=== PATIENT | male | born 1965 | race Caucasian/White ===

== ENCOUNTER 2017-07-24 17:06 | Emergency (ER) | payer BC ==
[2017-07-24 17:28] VITALS: BP 168/93
--- NOTE | 2017-07-24 17:46 | UC ---
Jennie Fink Thomas, scribed for Tasha Manzanares MD on 07/24/17 at 1721 . Ear Complaint HPI - HPI Summary HPI Summary: The pt is a 51 y/o M presenting to E c/o bilateral ear wax that he wants to be irrigated. He reports that he typically requires his earwax to be irrigated three times a year. He says that he has used Q-tips in the past. He has attempted to irrigate his ears at home in the past. He has not taken earwax softeners. He does not normally experience dizziness when his ears are irrigated. Pt additionally c/o hearing loss secondary to the earwax. Pt denies any ear pain at this time. pt without any complaint He takes Metformin for his DM. PMHx: NIDDM. PSHx: inguinal hernia repair. SHx: former smoker, rare alcohol use, no illicit drug use. FHx: DM. The patients PCP is Dr. Hansen. Patients medication reviewed this visit. - History of Current Complaint Chief Complaint: UCEar Stated Complaint: EAR COMPLAINT Hx Obtained From: Patient Onset/Duration: Still Present Severity Initially: Mild Severity Currently: Mild Pain Intensity: 0 Pain Scale Used: 0-10 Numeric Aggravating Factors: Nothing Alleviating Factors: Nothing Associated Signs/Symptoms: Positive: Hearing Loss. Negative: Trauma to Ear Related History: Other (Noted In Comments) - Needs to have earwax irrigated three times a year - Allergies/Home Medications Allergies/Adverse Reactions: Allergies Allergy/AdvReac Type Severity Reaction Status Date / Time No Known Allergies Allergy Verified 07/24/17 17:12 PMH/Surg Hx/FS Hx/Imm Hx Previously Healthy: No Endocrine History: Diabetes Cardiovascular History: Other Other Cardiovascular History: NEG: DE - Surgical History Surgical History: Yes Surgery Procedure, Year, and Place: Right inguinal hernia surgery (November 2010 in [place]) - Family History Known Family History: Positive: Diabetes - Social History Occupation: Employed Full-time Lives: With Family Alcohol Use: Rare Substance Use Type: None Smoking Status (MU): Former Smoker Review of Systems Constitutional: Negative, Other - NEG: fever Skin: Negative Eyes: Negative ENT: Other - POS: bilateral earwax buildup, hearing loss secondary to the earwax ; NEG: ear pain Respiratory: Negative Cardiovascular: Negative Gastrointestinal: Negative Genitourinary: Negative Motor: Negative Neurovascular: Negative Musculoskeletal: Negative Neurological: Negative Psychological: Negative All Other Systems Reviewed And Are Negative: Yes Physical Exam Triage Information Reviewed: Yes Appearance: Well-Appearing, No Pain Distress, Well-Nourished Vital Signs: Initial Vital Signs Temp 98.1 F 07/24/17 17:09 Pulse 70 07/24/17 17:09 Resp 12 07/24/17 17:09 BP 168/93 07/24/17 17:09 Pulse Ox 98 07/24/17 17:09 Vital Signs Reviewed: Yes Eye Exam: Normal Eyes: Positive: Conjunctiva Clear ENT: Positive: Hearing grossly normal. Negative: TMs normal - left TM - cerumen impaction - non visible right TM - scant cerumen - easily removed with curette Neck exam: Normal Neck: Positive: Supple, Nontender, No Lymphadenopathy Respiratory Exam: Normal Respiratory: Positive: Chest non-tender, Lungs clear, Normal breath sounds, No respiratory distress, No accessory muscle use Cardiovascular Exam: Normal Cardiovascular: Positive: RRR, No Murmur, Pulses Normal Musculoskeletal Exam: Normal Neurological Exam: Normal Neurological: Positive: Alert Psychological Exam: Normal Skin Exam: Normal Re-Evaluation - Re-Evaluation First Eval Re-Evaluation Time: 17:53 Change: Improved - cerumen removed from left TM crisp, no erythema, intact Pt without complaints will d/c Ear Complaint Course/Dx - Course Course Of Treatment: The patient is a 51 y/o M complaining of bilateral earwax buildup and in need of irrigation. He reports similar prior episodes approximately three times a year. Right cerumen removed with lighted curette. left TM - RN to irrigate. Blood pressure noted and patient informed of follow up with PCP. - Differential Dx/Diagnosis Provider Diagnoses: cerumen impaction Discharge - Discharge Plan Condition: Stable Disposition: HOME Patient Education Materials: Cerumen Impaction (ED) Referrals: Wolf Granados MD [Primary Care Provider] - The documentation as recorded by the Jennie blanco Thomas accurately reflects the service I personally performed and the decisions made by Leighton baron Laura, MD.
== END 2017-07-24 18:00 | disposition home or self-care (01) ==
LOC: UCEAST 17:06
DX: H61.23 Impacted cerumen, bilateral (principal); Z87.891 Personal history of nicotine dependence
CPT/HCPCS: 69210; 99211; G0463

== ENCOUNTER 2017-08-26 13:11 | Emergency (ER) | payer BC ==
[2017-08-26 16:18] VITALS: BP 161/83
--- NOTE | 2017-08-26 19:33 | UC ---
Zoila Fink Abhishek, scribed for Nirmal Lucas MD on 08/26/17 at 1705 . Respiratory Complaint HPI - HPI Summary HPI Summary: This patient is a 51 year old M presenting to [facility] with a chief complaint of chest congestion for 3 days. The patient rates the pain 6/10 in severity. Symptoms aggravated by mucinex. Symptoms alleviated by nothing. Patient reports rhinorrhea, fever, sinus pressure, nonproductive cough. Denies wheezing and ear pain. Pt states crusty stuff was present when asked if post nasal drip was present. Pt states Sudafed did not alleviate symptoms. Patient denies PMHx asthma and received his flu shot 6 days ago. - History of Current Complaint Chief Complaint: UCRespiratory Stated Complaint: CHEST CONGESTION Time Seen by Provider: 08/26/17 16:40 Hx Obtained From: Patient Onset/Duration: Sudden Onset - Today Timing: Constant Severity Initially: Moderate Severity Currently: Moderate Pain Intensity: 6 Pain Scale Used: 0-10 Numeric Character: Cough: Nonproductive Aggravating Factors: Other - Mucinex Alleviating Factors: Nothing Associated Signs And Symptoms: Positive: Fever, Nasal Congestion, Sinus Discomfort. Negative: Wheezing - Allergies/Home Medications Allergies/Adverse Reactions: Allergies Allergy/AdvReac Type Severity Reaction Status Date / Time No Known Allergies Allergy Verified 08/26/17 14:01 PMH/Surg Hx/FS Hx/Imm Hx - Additional Past Medical History Additional PMH: NEGATIVE: ME Endocrine History: Diabetes - Surgical History Surgical History: Yes Surgery Procedure, Year, and Place: Right inguinal hernia surgery (November 2010 in [place]) - Family History Known Family History: Positive: Diabetes - Social History Occupation: Employed Full-time Alcohol Use: Occasionally Substance Use Type: None Smoking Status (MU): Former Smoker Review of Systems Constitutional: Fever Skin: Negative Eyes: Negative ENT: Nasal Discharge, Sinus Congestion, Other - chest congestion; negative ear ache Respiratory: Cough - nonproductive, Other - negative: wheezing Cardiovascular: Negative Gastrointestinal: Negative Genitourinary: Negative Motor: Negative Neurovascular: Negative Musculoskeletal: Negative Neurological: Negative Psychological: Negative All Other Systems Reviewed And Are Negative: Yes Physical Exam Triage Information Reviewed: Yes Vital Signs: Initial Vital Signs Temp 98.3 F 08/26/17 13:58 Pulse 80 08/26/17 13:58 Resp 18 08/26/17 13:58 BP 147/88 08/26/17 13:58 Pulse Ox 100 08/26/17 13:58 Vital Signs Reviewed: Yes - Additional Comments General: well-appearing, no pain distress Skin: warm, color reflects adequate perfusion, dry Head: normal Eyes: EOMI, AGUS ENT: cerumen in the ear canal, mild erythema in the pharynx, rhinorrhea Neck: supple, nontender Respiratory: CTA, breath sounds present Cardiovascular: RRR Abdomen: soft, nontender Bowel: present Musculoskeletal: normal, strength/ROM intact Neurological: normal, sensory/motor intact, A&O x3 Psychological: affect/mood appropriate Diagnostic Evaluation - Laboratory O2 Sat by Pulse Oximetry: 99 Respiratory Course/Dx - Course Course Of Treatment: MEDICATIONS REVIEWED - Differential Dx/Diagnosis Provider Diagnoses: SINUSITIS Discharge - Discharge Plan Condition: Stable Disposition: HOME Prescriptions: Amoxicillin/Clavulanate TAB* [Augmentin TAB 875*] 875 mg PO BID #20 tab Benzonatate CAP* [Tessalon 100 MG CAP*] 100 mg PO TID PRN #15 cap PRN Reason: Cough Patient Education Materials: Sinusitis (ED) Forms: *Work Release Referrals: Wolf Granados MD [Primary Care Provider] - Additional Instructions: FOLLOW UP WITH YOUR DOCTOR. GET RECHECKED FOR ANY WORSENING OF YOUR CONDITION OR QUESTIONS OR CONCERNS. The documentation as recorded by the Zoila blanco Abhishek accurately reflects the service I personally performed and the decisions made by me, Nirmal Lucas MD.
== END 2017-08-26 17:03 | disposition home or self-care (01) ==
LOC: UCEAST 13:11
DX: J32.9 Chronic sinusitis, unspecified (principal); E11.9 Type 2 diabetes mellitus without complications; Z87.891 Personal history of nicotine dependence
CPT/HCPCS: 99212; G0463

== ENCOUNTER 2017-10-16 14:34 | Emergency (ER) | payer BC ==
[2017-10-16 14:45] VITALS: BP 135/73
[2017-10-16] MEDS ORDERED: Al Hydrox/Mg Hydrox/Simet LIQ* 30 ML UDC PO ONE (15:05)
[2017-10-16] MEDS ORDERED: Famotidine TAB* 20 MG PO ONE (15:06)
[2017-10-16] MEDS ORDERED: Lidocaine 2% VISCOUS* 15 ML UDC PO ONE (15:08)
--- NOTE | 2017-10-16 15:38 | UC ---
General HPI - HPI Summary HPI Summary: 52 year old male with history of htn, hld, DM here with a complaint of "heart burn." Patient reports he usually does not get heart burn but few days ago he developed burning in his epigastrium/sternal area with nausea. He took OTC meds with partial relief. Symptoms are worsened when supine, partially alleviated with OTC meds. He denies exertional symptoms, MOORE, orthopnea, change in ET. No other complaints. - History of Current Complaint Chief Complaint: UCChestPain Stated Complaint: HEART BURN Time Seen by Provider: 10/16/17 14:51 Onset/Duration: Sudden Onset, Lasting Minutes Associated Signs & Symptoms: Positive: Nausea, Vomiting - Allergy/Home Medications Allergies/Adverse Reactions: Allergies Allergy/AdvReac Type Severity Reaction Status Date / Time No Known Allergies Allergy Verified 10/16/17 14:45 PMH/Surg Hx/FS Hx/Imm Hx Endocrine History: Diabetes, Dyslipidemia Cardiovascular History: Hypertension - Surgical History Surgical History: Yes Surgery Procedure, Year, and Place: Right inguinal hernia surgery (November 2010 in [place]) - Family History Known Family History: Positive: Diabetes - Social History Alcohol Use: Occasionally Substance Use Type: None Smoking Status (MU): Former Smoker Review of Systems Constitutional: Negative Skin: Negative Eyes: Negative ENT: Negative Respiratory: Negative Cardiovascular: Negative, Chest Pain Gastrointestinal: Negative, Vomiting Genitourinary: Negative Motor: Negative Neurovascular: Negative Musculoskeletal: Negative Neurological: Negative Psychological: Negative All Other Systems Reviewed And Are Negative: Yes Physical Exam Triage Information Reviewed: Yes Vital Signs: Initial Vital Signs Temp 37.1 C 10/16/17 14:38 Pulse 92 10/16/17 14:38 Resp 16 10/16/17 14:38 BP 135/73 10/16/17 14:38 Pulse Ox 100 10/16/17 14:38 Diagnostics - Radiology cxr Xray Interpretation: No Acute Changes Radiology Interpretation Completed By: Radiologist - EKG Cardiac Rate: NL Cardiac Rhythm: Sinus: Normal ST Segment: Non-Specific Re-Evaluation - Re-Evaluation First Eval Re-Evaluation Time: 16:11 Course/Dx - Course Course Of Treatment: Heart burn. Given his medical history and risk factors(DM , HTN, HLD and ex-smoker), concern for ACS. He prefers to go to the ED by car. - Differential Dx - Multi-Symptom Differential Diagnoses: Cardiac Ischemia, Other - Gastritis Provider Diagnoses: Chest pain NOS Discharge - Discharge Plan Condition: Good Disposition: TRANS HIGHER LVL OF CARE FAC Forms: *Work Release Referrals: Wolf Granados MD [Primary Care Provider] - Additional Instructions: You need to go to the ED for blood work to check your heart.
--- NOTE | 2017-10-16 15:56 | RAD ---
INDICATION: Epigastric area of burning. COMPARISON: Comparison is made with a prior chest x-ray study from August 31, 2015. TECHNIQUE: Dual-energy PA and lateral views of the chest were obtained. FINDINGS: The heart is within normal limits in size. Mediastinal and hilar contours appear within normal limits. The lungs are clear. No pleural effusion is present. No free intraperitoneal air is seen. IMPRESSION: NO EVIDENCE FOR ACTIVE CARDIOPULMONARY DISEASE.
== END 2017-10-16 16:15 | disposition short-term general hospital (02) ==
LOC: UCEAST 14:34
DX: R07.89 Other chest pain (principal); R10.13 Epigastric pain; R11.2 Nausea with vomiting, unspecified; E11.9 Type 2 diabetes mellitus without complications; E78.5 Hyperlipidemia, unspecified; I10 Essential (primary) hypertension; Z87.891 Personal history of nicotine dependence
CPT/HCPCS: 71020; 93005; 99212; A9270-GY; G0463

== ENCOUNTER 2017-10-16 17:27 | Emergency (ER) | payer BC ==
[2017-10-16 18:13] LABS: Hematocrit 37 % (42-52); Hemoglobin 12.6 g/dl (14.0-18.0); Mean Corpuscular HGB Conc 34 g/dl (31-36); Mean Corpuscular Hemoglobin 29 pg (27-31); Mean Corpuscular Volume 86 fL (80-94); Mean Platelet Volume 8 um3 (7.4-10.4); Red Cell Distribution Width 14 % (10.5-15)
[2017-10-16 18:26] LABS: Albumin 4.2 g/dL (3.2-5.2); BUN/Creatinine Ratio 16.3 (8-20); Calcium 9.1 mg/dL (8.6-10.3); EGFR African American 55.8 (>60); EGFR Non-African American 43.4 (>60); Globulin 2.9 g/dL (2-4); Potassium 3.5 mmol/L (3.5-5.0); Total Bilirubin 0.5 mg/dL (0.2-1.0); Total Protein 7.1 g/dL (6.4-8.9)
[2017-10-16 21:02] VITALS: BP 138/69
--- NOTE | 2017-10-17 20:12 | ED ---
Jeffy Fink Gabriel, scribed for Bishop Chowdhury MD on 10/16/17 at 2042 . GI/ HPI - HPI Summary HPI Summary: This patient is a 52 year old M presenting to [facility] accompanied by with a chief complaint of GERD since 5 days prior. The patient rates the pain 3/10 in severity. Patient reports vomiting. Patient denies CP, SOB, and melena. Pt states anytime he drinks or eats he gets dyspepsia, he has taken OTC antacids with no relief. He states it not exacerbated by lying. Pt was sent from urgent care, he was given a GI cocktail there which alleviated his symptoms. - History of Current Complaint Chief Complaint: EDGeneral Time Seen by Provider: 10/16/17 20:26 Stated Complaint: 5 DAYS OF HEARTBURN-SENT FROM Hx Obtained From: Patient Onset/Duration: Started Days Ago - 5, Still Present Timing: Constant Pain Intensity: 3 Pain Characteristics: Burning Associated Signs and Symptoms: Positive: Negative - CP, SOB, and melena, Other: - vomiting - Allergy/Home Medications Allergies/Adverse Reactions: Allergies Allergy/AdvReac Type Severity Reaction Status Date / Time No Known Allergies Allergy Verified 10/16/17 14:45 Home Medications: Home Medications Exenatide [Bydureon] 2 mg SC 10/16/17 [History] PMH/Surg Hx/FS Hx/Imm Hx Previously Healthy: No Endocrine/Hematology History: Reports: Hx Diabetes - Type II Cardiovascular History: Reports: Hx Hypertension - Surgical History Surgery Procedure, Year, and Place: Right inguinal hernia surgery (November 2010 in [place]) Infectious Disease History: No Infectious Disease History: Denies: History Other Infectious Disease, Traveled Outside the [place] in Last 30 Days - Family History Known Family History: Positive: Diabetes - Social History Alcohol Use: Occasionally Hx Substance Use: No Substance Use Type: Reports: None Hx Tobacco Use: No Smoking Status (MU): Former Smoker Review of Systems Negative: Chest Pain Negative: Shortness Of Breath Gastrointestinal: Negative - melena Positive: Vomiting, Other - dyspepsia All Other Systems Reviewed And Are Negative: Yes Physical Exam - Summary Physical Exam Summary: Appearance: Well appearing, no pain distress Skin: warm, dry, reflects adequate perfusion Head/face: normal Eyes: EOMI, AGUS ENT: normal Neck: supple, non-tender Respiratory: CTA, breath sounds present Cardiovascular: RRR, pulses symmetrical Abdomen: non-tender, soft Bowel: present Musculoskeletal: normal, strength/ROM intact Neuro: normal, sensory motor intact, A&Ox3 Triage Information Reviewed: Yes Vital Signs On Initial Exam: Initial Vitals Temp Pulse Resp BP Pulse Ox 97 F 79 18 126/69 100 10/16/17 17:31 10/16/17 17:31 10/16/17 17:31 10/16/17 17:31 10/16/17 17:31 Vital Signs Reviewed: Yes Diagnostics - Vital Signs Vital Signs Temp Pulse Resp BP Pulse Ox 10/16/17 17:31 97 F 79 18 126/69 100 - Laboratory Lab Results: Lab Results 10/16/17 10/16/17 10/16/17 Range/Units 17:58 17:58 17:58 WBC 8.0 (3.5-10.8) 10^3/ul RBC 4.30 (4.0-5.4) 10^6/ul Hgb 12.6 L (14.0-18.0) g/dl Hct 37 L (42-52) % MCV 86 (80-94) fL MCH 29 (27-31) pg MCHC 34 (31-36) g/dl RDW 14 (10.5-15) % Plt Count 232 (150-450) 10^3/ul MPV 8 (7.4-10.4) um3 Neut % (Auto) 52.9 (38-83) % Lymph % (Auto) 36.4 (25-47) % Laurens % (Auto) 5.9 (1-9) % Eos % (Auto) 4.0 (0-6) % Baso % (Auto) 0.8 (0-2) % Absolute Neuts (auto) 4.2 (1.5-7.7) 10^3/ul Absolute Lymphs (auto) 2.9 (1.0-4.8) 10^3/ul Absolute Monos (auto) 0.5 (0-0.8) 10^3/ul Absolute Eos (auto) 0.3 (0-0.6) 10^3/ul Absolute Basos (auto) 0.1 (0-0.2) 10^3/ul Absolute Nucleated RBC 0.01 10^3/ul Nucleated RBC % 0.1 Sodium 137 (133-145) mmol/L Potassium 3.5 (3.5-5.0) mmol/L Chloride 101 (101-111) mmol/L Carbon Dioxide 29 (22-32) mmol/L Anion Gap 7 (2-11) mmol/L BUN 27 H (6-24) mg/dL Creatinine 1.66 H (0.67-1.17) mg/dL Est GFR ( Amer) 55.8 (>60) Est GFR (Non-Af Amer) 43.4 (>60) BUN/Creatinine Ratio 16.3 (8-20) Glucose 64 L (70-100) mg/dL Lactic Acid 1.2 (0.5-2.0) mmol/L Calcium 9.1 (8.6-10.3) mg/dL Total Bilirubin 0.50 (0.2-1.0) mg/dL AST 15 (13-39) U/L ALT 18 (7-52) U/L Alkaline Phosphatase 61 (34-104) U/L Troponin I 0.00 (<0.04) ng/mL Total Protein 7.1 (6.4-8.9) g/dL Albumin 4.2 (3.2-5.2) g/dL Globulin 2.9 (2-4) g/dL Albumin/Globulin Ratio 1.4 (1-3) Result Diagrams: 10/16/17 17:58 10/16/17 17:58 Lab Statement: Any lab studies that have been ordered have been reviewed, and results considered in the medical decision making process. GIGU Course/Dx - Course Course Of Treatment: pt with GI sx, not on meds. Tx with relief. Rx for PPI/H2 louisa. F/U PMD. - Diagnoses Differential Diagnoses - Male: Enterocolitis, Esophagitis/Gastritis, Esophageal Varices Provider Diagnoses: GERD (gastroesophageal reflux disease), Controlled diabetes mellitus, Chronic renal insufficiency Discharge - Discharge Plan Condition: Good Disposition: HOME Prescriptions: Famotidine TAB 40 MG(NF) [Pepcid TAB 40 MG(NF)] 40 mg PO DAILY PRN #10 tab PRN Reason: Heartburn Pantoprazole TAB (NF) [Protonix TAB (NF)] 40 mg PO DAILY #30 tab Patient Education Materials: Gastroesophageal Reflux Disease (ED) Referrals: Wolf Granados MD [Primary Care Provider] - Additional Instructions: Avoid alcohol, coffee, spicy foods and antiinflammatory drugs such as ibuprofen/ aleve. Return if worse, dark/tarry stools, new symptoms or other concerns. Review your kidney function with your doctor. The documentation as recorded by the Jeffy blanco Gabriel accurately reflects the service I personally performed and the decisions made by me, Bishop Chowdhury MD.
== END 2017-10-16 21:02 | disposition home or self-care (01) ==
LOC: ED 17:27
DX: K21.9 Gastro-esophageal reflux disease without esophagitis (principal); E11.9 Type 2 diabetes mellitus without complications; N18.9 Chronic kidney disease, unspecified
CPT/HCPCS: 36415; 80053; 83605; 84484; 85025; 93005; 99283

== ENCOUNTER 2017-12-31 07:55 | Emergency (ER) | payer BC ==
[2017-12-31 08:36] VITALS: BP 139/86
--- NOTE | 2017-12-31 10:09 | UC ---
FLU HPI - HPI Summary HPI Summary: Pt presents with flu like symptoms. He tells me that about 4 days ago he developed fever, fatigue, and body aches. The next day he developed nausea, vomiting, and diarrhea with mild generalized abdominal pain. His was sick with similar symptoms. He stayed home from work yesterday and today due to this. Last night he felt better and today even better - able to eat. No more diarrhea or vomiting since yesterday morning. Denies fever, chills, SOB, chest pain, abdominal pain. - History of Current Complaint Chief Complaint: UCGeneralIllness Stated Complaint: FLU SYMPTOMS Time Seen by Provider: 12/31/17 08:34 Hx Obtained From: Patient Onset/Duration: Gradual Onset Severity Currently: Moderate Severity Initially: Moderate Pain Intensity: 5 Pain Scale Used: 0-10 Numeric - Allergy/Home Medications Allergies/Adverse Reactions: Allergies Allergy/AdvReac Type Severity Reaction Status Date / Time No Known Allergies Allergy Verified 12/31/17 08:30 PMH/Surg Hx/FS Hx/Imm Hx Endocrine History: Diabetes, Dyslipidemia Cardiovascular History: Hypertension - Surgical History Surgical History: Yes Surgery Procedure, Year, and Place: Right inguinal hernia surgery (November 2010 in [place]) - Family History Known Family History: Positive: Diabetes - Social History Occupation: Employed Full-time Lives: With Family Alcohol Use: Occasionally Substance Use Type: None Smoking Status (MU): Former Smoker Review of Systems Constitutional: Fever, Fatigue, Other - Body aches Skin: Negative Eyes: Negative ENT: Negative Respiratory: Negative Cardiovascular: Negative Gastrointestinal: Vomiting, Diarrhea, Nausea Musculoskeletal: Negative Neurological: Negative Psychological: Negative All Other Systems Reviewed And Are Negative: Yes Physical Exam Triage Information Reviewed: Yes Appearance: Well-Appearing, No Pain Distress, Well-Nourished Vital Signs: Initial Vital Signs Temp 98.4 F 12/31/17 08:34 Pulse 82 12/31/17 08:34 Resp 16 12/31/17 08:34 BP 139/86 12/31/17 08:34 Pulse Ox 99 12/31/17 08:34 Vital Signs Reviewed: Yes Eyes: Positive: Conjunctiva Clear. Negative: Conjunctiva Inflamed, Discharge ENT: Positive: Hearing grossly normal, Pharynx normal, TMs normal, Uvula midline. Negative: Pharyngeal erythema, Nasal congestion, Nasal drainage, TM bulging, TM dull, TM red, Tonsillar swelling, Tonsillar exudate, Hoarse voice, Sinus tenderness Neck: Positive: Supple, Nontender, No Lymphadenopathy Respiratory: Positive: Chest non-tender, Lungs clear, Normal breath sounds, No respiratory distress, No accessory muscle use Cardiovascular: Positive: RRR, No Murmur, Pulses Normal Abdomen Description: Positive: Nontender, No Organomegaly, Soft. Negative: CVA Tenderness (R), CVA Tenderness (L), Distended, Guarding Bowel Sounds: Positive: Present Neurological: Positive: Alert Psychological: Positive: Age Appropriate Behavior Skin: Negative: rashes Flu Course/Dx - Course Course Of Treatment: POC flu negative. Suspect viral gastroenteritis. He is asking for a work note - Differential Dx/Diagnosis Provider Diagnoses: Viral gastroenteritis Discharge - Discharge Plan Condition: Stable Disposition: HOME Patient Education Materials: Gastroenteritis (DC) Forms: *Work Release Referrals: Wolf Granados MD [Primary Care Provider] - Additional Instructions: If you develop a fever, shortness of breath, chest pain, new or worsening symptoms - please call your PCP or go to the ED. Your blood pressure was high at todays visit. Please see your primary provider within 4 weeks for recheck and re-evaluation.
== END 2017-12-31 10:25 | disposition home or self-care (01) ==
LOC: UCEAST 07:55
DX: A08.4 Viral intestinal infection, unspecified (principal); E11.9 Type 2 diabetes mellitus without complications; E78.5 Hyperlipidemia, unspecified; I10 Essential (primary) hypertension; Z87.891 Personal history of nicotine dependence
CPT/HCPCS: 87502; 99212; G0463

== ENCOUNTER 2018-02-19 07:16 | Emergency (ER) | payer BC ==
[2018-02-19 07:38] VITALS: BP 152/82
[2018-02-19] MEDS ORDERED: predniSONE TAB* 20 MG PO ONE (08:03)
--- NOTE | 2018-02-19 08:11 | UC ---
Lower Extremity/Ankle HPI - HPI Summary HPI Summary: 52 yo male iwth left great toe redness and pain x 3 days hx of gout no trauma - History of Current Complaint Chief Complaint: UCLowerExtremity Stated Complaint: FOOT PAIN Time Seen by Provider: 02/19/18 07:53 Hx Obtained From: Patient Onset/Duration: Gradual Onset Severity Initially: Moderate Severity Currently: Moderate Pain Intensity: 7 Pain Scale Used: 0-10 Numeric Aggravating Factor(s): Standing, Ambulation Alleviating Factor(s): Rest Able to Bear Weight: Yes - Risk Factors Gout Risk Factors: Age Over 40, Male, Diabetes, Hypertension - Allergies/Home Medications Allergies/Adverse Reactions: Allergies Allergy/AdvReac Type Severity Reaction Status Date / Time No Known Allergies Allergy Verified 02/19/18 07:32 PMH/Surg Hx/FS Hx/Imm Hx Previously Healthy: Yes Endocrine History: Diabetes Cardiovascular History: Hypertension - Surgical History Surgical History: Yes Surgery Procedure, Year, and Place: Right inguinal hernia surgery (November 2010 in [place]) - Family History Known Family History: Positive: Diabetes - Social History Alcohol Use: Occasionally Substance Use Type: None Smoking Status (MU): Former Smoker Review of Systems Constitutional: Negative Skin: Negative Eyes: Negative ENT: Negative Respiratory: Negative Cardiovascular: Negative Gastrointestinal: Negative Genitourinary: Negative Motor: Negative Neurovascular: Negative Musculoskeletal: Arthralgia Neurological: Negative Psychological: Negative Is Patient Immunocompromised?: No All Other Systems Reviewed And Are Negative: Yes Physical Exam Triage Information Reviewed: Yes Appearance: Well-Appearing, No Pain Distress, Well-Nourished Vital Signs: Initial Vital Signs Temp 98.3 F 02/19/18 07:34 Pulse 71 02/19/18 07:34 Resp 16 02/19/18 07:34 BP 152/82 02/19/18 07:34 Pulse Ox 98 02/19/18 07:34 Vital Signs Reviewed: Yes Eyes: Positive: Conjunctiva Clear ENT: Positive: Hearing grossly normal. Negative: Nasal congestion, Nasal drainage, Trismus, Muffled voice, Hoarse voice Neck: Positive: Supple Respiratory: Positive: Lungs clear, Normal breath sounds, No respiratory distress, No accessory muscle use Cardiovascular: Positive: RRR, No Murmur Musculoskeletal: Positive: Edema @ - red/swollen left great toe MTP, Other: - antalgic gait Neurological: Positive: Alert Psychological Exam: Normal Skin Exam: Normal Lower Extremity Course/Dx - Course Course Of Treatment: labs for 10/04 reviewed. elevated BUN and Creat. will avoid NSAIDs - Differential Dx/Diagnosis Provider Diagnoses: acute gouty arthritis left great toe Discharge - Sign-Out/Discharge Documenting (check all that apply): Discharge - Discharge Plan Condition: Stable Disposition: HOME Prescriptions: predniSONE [Prednisone] 60 mg PO DAILY #6 tab Patient Education Materials: Low Purine Diet (ED), Gout (ED) Referrals: Wolf Granados MD [Primary Care Provider] - 2 Weeks Additional Instructions: post op shoe tylenol recheck in 4 days if not better - Billing Disposition and Condition Condition: STABLE Disposition: HOME Images Feet (Multiple View): 1 - red/swollen
== END 2018-02-19 08:10 | disposition home or self-care (01) ==
LOC: UCEAST 07:16
DX: M10.072 Idiopathic gout, left ankle and foot (principal); E11.9 Type 2 diabetes mellitus without complications; Z79.84 Long term (current) use of oral hypoglycemic drugs; I10 Essential (primary) hypertension; Z87.891 Personal history of nicotine dependence
CPT/HCPCS: 99213; G0463; J7512

== ENCOUNTER 2018-06-13 07:15 | Emergency (ER) | payer BC ==
[2018-06-13 07:29] VITALS: BP 153/82
--- NOTE | 2018-06-13 07:42 | UC ---
Ear Complaint HPI - HPI Summary HPI Summary: 2 DAYS OF DECREASED HEARING AND SENSATION THAT HIS EARS ARE PLUGGED. STATES HE BUILDS WAX AND HAS TO GET HIS EARS CLEANED OUT EVERY 3 OR 4 MONTHS. NO FEVER OR URI SYMPTOMS. DOES NOT USE Q-TIPS. - History of Current Complaint Chief Complaint: UCEar Stated Complaint: PLUGGED EARS Time Seen by Provider: 06/13/18 07:17 Hx Obtained From: Patient Onset/Duration: Gradual Onset, Lasting Days, Still Present Severity Initially: Mild Severity Currently: Mild Pain Intensity: 0 Pain Scale Used: 0-10 Numeric Aggravating Factors: Nothing Alleviating Factors: Nothing Associated Signs/Symptoms: Positive: Hearing Loss. Negative: Discharge, URI Symptoms - Allergies/Home Medications Allergies/Adverse Reactions: Allergies Allergy/AdvReac Type Severity Reaction Status Date / Time No Known Allergies Allergy Verified 06/13/18 07:26 PMH/Surg Hx/FS Hx/Imm Hx Endocrine History: Diabetes Cardiovascular History: Hypertension - Surgical History Surgical History: Yes Surgery Procedure, Year, and Place: Right inguinal hernia surgery (November 2010 in [place]) - Family History Known Family History: Positive: Hypertension, Diabetes - Social History Alcohol Use: Occasionally Substance Use Type: None Smoking Status (MU): Former Smoker Have You Smoked in the Last Year: Yes - once in a while cigar Household Exposure Type: Cigars Review of Systems Constitutional: Negative ENT: Other - decreased hearing Respiratory: Negative Cardiovascular: Negative Gastrointestinal: Negative All Other Systems Reviewed And Are Negative: Yes Physical Exam Triage Information Reviewed: Yes Appearance: Well-Appearing, No Pain Distress, Well-Nourished Vital Signs: Initial Vital Signs Temp 98.4 F 06/13/18 07:22 Pulse 69 06/13/18 07:22 Resp 18 06/13/18 07:22 BP 153/82 06/13/18 07:22 Pulse Ox 96 06/13/18 07:22 Vital Signs Reviewed: Yes Eyes: Positive: Conjunctiva Clear ENT: Positive: Hearing grossly normal, Pharynx normal, Other - EAC BILATERALLY WITH CERUMEN OBSTRUCTING VIEW OF TMs Neck: Positive: Supple Respiratory: Positive: No respiratory distress, No accessory muscle use Cardiovascular: Positive: Pulses Normal Musculoskeletal: Positive: No Edema Neurological: Positive: Alert Psychological: Positive: Age Appropriate Behavior Skin: Negative: rashes Ear Complaint Course/Dx - Course Course Of Treatment: BILATERAL EAR CANALS SUCCESSFULLY IRRIGATED BY RN. TMS VISUALIZED AND ARE CLEAR. - Differential Dx/Diagnosis Provider Diagnoses: BILATERAL CERUMEN IMPACTION Discharge - Sign-Out/Discharge Documenting (check all that apply): Patient Departure - Discharge Plan Condition: Stable Disposition: HOME Patient Education Materials: Cerumen Impaction (ED) Referrals: Wolf Granados MD [Primary Care Provider] - If Needed Additional Instructions: YOUR EARS WERE SUCCESSFULLY IRRIGATED TODAY. NOW THAT YOUR EAR CANALS ARE CLEAR OF WAX YOU MAY USE A QTIP TO GENTLY AND CAREFULLY CLEAN YOUR EARS ONCE OR TWICE A WEEK TO KEEP WAX FROM BUILDING UP. DO NOT INSERT THE QTIP ANY FURTHER THAN THE DEPTH OF THE [employer] [facility]. - Billing Disposition and Condition Condition: STABLE Disposition: Home
== END 2018-06-13 08:05 | disposition home or self-care (01) ==
LOC: UCEAST 07:15
DX: H61.23 Impacted cerumen, bilateral (principal); I10 Essential (primary) hypertension; E11.9 Type 2 diabetes mellitus without complications
CPT/HCPCS: 99213; G0463

== ENCOUNTER 2018-07-23 08:32 | Emergency (ER) | payer BC ==
[2018-07-23 08:39] VITALS: BP 155/99
--- NOTE | 2018-07-23 09:33 | UC ---
Abdominal Pain Male HPI - HPI Summary HPI Summary: This patient 52 is year old male presenting to [facility] with a CC of N/V/D since this AM. He states he got to work this AM, started feeling diaphoretic, clammy , and nauseous; he experienced 3x emesis this AM (he describes it as food from last night), and 1x diarrhea this AM. no blood or black stools. Pt left work. He endorses that his sx are better currently than at onset. Pt states current little nausea,but not bad. No chest pain or shortness of breath no abdominal pain No sick contact. no others shared food last night (left over bbq and mac salad from weekend) No abdominal pain. Pt denies fever, chills, SOB, and recent travel outside of the [place] or exposure to other ill people. PMHx DM II; he denies having checked his sugar today, and notes he rarely checks it, but when he does it is usually around 123. Pt's medications reviewed this visit - History of Current Complaint Chief Complaint: UCGeneralIllness Stated Complaint: VOMITING Time Seen by Provider: 07/23/18 09:06 Hx Obtained From: Patient Onset/Duration: Sudden Onset, Lasting Hours, Still Present Timing: Constant Severity Initially: Moderate Severity Currently: Mild Location: Other - no abdominal pain Radiates: No Character: Not Applicable Aggravating Factor(s): Nothing Alleviating Factor(s): Nothing Associated Signs And Symptoms: Positive: Diaphoresis, Chest Pain - secondary to emesis, right lateral, Nausea, Vomiting, Diarrhea. Negative: Fever - Allergies/Home Medications Allergies/Adverse Reactions: Allergies Allergy/AdvReac Type Severity Reaction Status Date / Time No Known Allergies Allergy Verified 07/23/18 08:39 PMH/Surg Hx/FS Hx/Imm Hx Endocrine History: Diabetes, Dyslipidemia Cardiovascular History: Hypertension - Surgical History Surgical History: Yes Surgery Procedure, Year, and Place: Right inguinal hernia surgery (November 2010 in [place]) - Family History Known Family History: Positive: Hypertension, Diabetes - Social History Occupation: Employed Full-time Lives: Alone Alcohol Use: Occasionally Substance Use Type: None Smoking Status (MU): Former Smoker Have You Smoked in the Last Year: Yes - once in a while cigar Household Exposure Type: Cigars Review of Systems Constitutional: Other - diaphoretic, clammy Cardiovascular: Chest Pain - secondary to emesis, right lateral ribs Gastrointestinal: Vomiting, Diarrhea, Nausea Is Patient Immunocompromised?: Yes - DM II, no insulin All Other Systems Reviewed And Are Negative: Yes Physical Exam - Summary Physical Exam Summary: Vital Signs Reviewed: Yes A+Ox3, no distress Eyes: Conjunctiva Clear, AGUS. EOM intact and full ENT: Hearing grossly normal TM x 2 clear, mmoist, uvula midline, no exudate, no erythema Neck: Positive: Supple Respiratory: Positive: No respiratory distress, No accessory muscle use + CTA throughout no w/r mild discomfort with direct palp right lateral distal rib no crepitus Cardiovascular: RRR nl s1, s2 no m/r CBT <2 sec abd soft + BS nt/nd no guarding, no distension Musculoskeletal Exam: GRAYSON x 4 without difficulty Strength Intact, ROM Intact Neurological: Positive: Alert, + sensation throughout Psychological: Positive: Normal Response To Family Skin: Positive: no rash, no ecchymosis Triage Information Reviewed: Yes Vital Signs: Initial Vital Signs Temp 98.1 F 07/23/18 08:36 Pulse 75 07/23/18 08:36 Resp 16 07/23/18 08:36 BP 155/99 07/23/18 08:36 Pulse Ox 99 07/23/18 08:36 Diagnostics - EKG EKG Comments: 0919 Cardiac Rate: NL - 63 Cardiac Rhythm: Sinus: Normal Ectopy: None ST Segment: Normal EKG Comparison: No Significant Change - from 10/04 Re-Evaluation - Re-Evaluation First Eval Comment: EKG unchanged from past October 2017. Blood sugar 247. Urine has 3+ glucose but has no ketones. Patient continues to feel well. We'll discharge patient home with a prescription for Zofran. Strict return precautions. Patient advised to call 911 or go to a hospital if anything changes. Patient understanding and agreement. Patient given a work note. Abd Pain Male Course/Dx - Course Course Of Treatment: Patient presents following 3 episodes of emesis that happened this morning. Patient states he had diarrhea before going to work. Patient states at work he felt suddenly clammy nauseous and vomited 3 times. Patient states the vomitus was last night undigested food. Patient states at the present he feels okay. Patient while mild discomfort right lower rib today thinks from vomiting. Patient denies any abdominal pain. Patient without any sick contacts. No others with the same food. Patient denies shortness of breath or chest pain. Patient does have some cardiac risk factors that he is a diabetic as well as has hypertension and high cholesterol. We'll check an EKG, fingerstick blood sugars. In urine. Follow unremarkable likely discharged with a prescription for Zofran. Patient given strict return precautions. Patient states understanding and agreement with plan. - Differential Dx/Clinical Impression Provider Diagnoses: acute episode of nausea and vomiting Discharge - Sign-Out/Discharge Documenting (check all that apply): Post-Discharge Follow Up All imaging exams completed and their final reports reviewed: No Studies - Discharge Plan Condition: Stable Disposition: HOME Prescriptions: Ondansetron ODT TAB* [Zofran 4 MG Odt TAB*] 4 mg PO Q6H PRN #10 tab.odt PRN Reason: Vomiting Patient Education Materials: Acute Nausea and Vomiting (ED) Forms: *Work Release Referrals: Wolf Granados MD [Primary Care Provider] - Additional Instructions: - Stay well hydrate. Drink plenty of non alcoholic, non caffeinated beverages. Frequent, small sips - For the first 6 hours, eat and drink clears (water, donnie ha, soup broth, jello, popsicles, Gatorade). If you tolerate this okay, add bland foods such as dry toast, scrambled eggs, crackers. Wait until you are feeling better for 24 hours before eating spicy food, acidic food, tomato based food, fried food. - Okay to take medication a prescribed for nausea - get restful sleep - If you develop pain, uncontrolled vomiting, fevers, chest pain or any other concerns it is recommended you contact your doctor or seek medical care - Billing Disposition and Condition Condition: STABLE Disposition: Home - Attestation Statements Document Initiated by Rozina: Yes Documenting Scribe: Bran Diana Provider For Whom Rozina is Documenting (Include Credential): Dr. Tasha Manzanares MD Scribe Attestation: Bran Fink scribed for Dr. Tasha Manzanares MD on 07/23/18 at 1058. Scribe Documentation Reviewed: Yes Provider Attestation: The documentation as recorded by the Bran blanco accurately reflects the service I personally performed and the decisions made by me, Dr. Tasha Manzanares MD
== END 2018-07-23 09:55 | disposition home or self-care (01) ==
LOC: UCEAST 08:32
DX: R11.2 Nausea with vomiting, unspecified (principal); R61 Generalized hyperhidrosis; R07.89 Other chest pain; Z87.891 Personal history of nicotine dependence
CPT/HCPCS: 81003; 93005; 99212; G0463

== ENCOUNTER 2018-08-29 12:05 | Emergency (ER) | payer BC ==
[2018-08-29 12:13] VITALS: BP 146/79
--- NOTE | 2018-08-29 13:12 | UC ---
Abdominal Pain Male HPI - HPI Summary HPI Summary: 52 yo male presents with nausea, vomiting, and fatigue that began this morning. He tells me that he did not take his zantac this morning and had breakfast pizza and coffee. Soon after this developed nausea, "heartburn", belching, and vomited once while at work. His boss sent him home. He is also diabetic, but does not check his sugars regularly or monitor his diet. He denies fever, chills , SOB, chest pain, abdominal pain, dysuria, diarrhea. - History of Current Complaint Chief Complaint: UCGI Stated Complaint: VOMITTING,FATIGUE,EYE COMPLAINT Time Seen by Provider: 08/29/18 13:12 Hx Obtained From: Patient Onset/Duration: Sudden Onset Severity Initially: Moderate Severity Currently: Moderate Pain Intensity: 5 Pain Scale Used: 0-10 Numeric - Allergies/Home Medications Allergies/Adverse Reactions: Allergies Allergy/AdvReac Type Severity Reaction Status Date / Time No Known Allergies Allergy Verified 08/29/18 12:13 PMH/Surg Hx/FS Hx/Imm Hx Endocrine History: Diabetes, Dyslipidemia Cardiovascular History: Hypertension GI/ History: Gastroesophageal Reflux - Surgical History Surgical History: Yes Surgery Procedure, Year, and Place: Right inguinal hernia surgery (November 2010 in [place]) - Family History Known Family History: Positive: Hypertension, Diabetes - Social History Occupation: Employed Full-time Lives: With Family Alcohol Use: Occasionally Substance Use Type: None Smoking Status (MU): Former Smoker Have You Smoked in the Last Year: Yes - once in a while cigar Household Exposure Type: Cigars Review of Systems Constitutional: Negative Skin: Negative Eyes: Negative ENT: Negative Respiratory: Negative Cardiovascular: Negative Gastrointestinal: Vomiting, Nausea Genitourinary: Negative Neurovascular: Negative Neurological: Negative Psychological: Negative All Other Systems Reviewed And Are Negative: Yes Physical Exam - Summary Physical Exam Summary: GENERAL: NAD. WDWN. No pain distress. SKIN: No rashes, sores, lesions, or open wounds. NECK: Supple. Nontender. No lymphadenopathy. CHEST: CTAB. No r/r/w. No accessory muscle use. Breathing comfortably and in no distress. CV: RRR. Without m/r/g. Pulses intact. Cap refill <2seconds ABDOMEN: Soft. NTTP. No distention or guarding. No CVA tenderness. Bowel sounds present NEURO: Alert. PSYCH: Age appropriate behavior. Triage Information Reviewed: Yes Vital Signs: Initial Vital Signs Temp 97.5 F 08/29/18 12:09 Pulse 86 08/29/18 12:09 Resp 18 08/29/18 12:09 BP 146/79 08/29/18 12:09 Pulse Ox 97 08/29/18 12:09 Laboratory Tests 08/29/18 13:42 POC Glucose (mg/dL) 347 H Vital Signs Reviewed: Yes Re-Evaluation - Re-Evaluation First Eval Re-Evaluation Time: 14:07 Change: Improved Abd Pain Male Course/Dx - Course Course Of Treatment: EKG NSR 79bpm. LVH. No ST changes as read by Dr. Hollingsworth. POC glucose 347. Pt was given Maalox Plus with viscous lidocaine and observed for ~30minutes. On re-eval he reported complete resolution of his symptoms and felt much better. I discussed with him that his glucose is very high and stressed the importance of proper diet and glucose control. Advised to make an appt as soon as possible with his PCP for this. Pt voiced understanding. - Differential Dx/Clinical Impression Provider Diagnoses: GERD. Nausea. vomiting. DM2 Discharge - Sign-Out/Discharge Documenting (check all that apply): Patient Departure All imaging exams completed and their final reports reviewed: No Studies - Discharge Plan Condition: Stable Disposition: HOME Prescriptions: Ondansetron HCl [Zofran 4 MG TAB] 4 mg PO Q8H PRN #15 tab PRN Reason: Nausea Patient Education Materials: Gastroenteritis (DC), Diabetes and Nutrition (ED) Forms: *Work Release Referrals: Wolf Granados MD [Primary Care Provider] - As Soon As Possible Additional Instructions: If you develop a fever, shortness of breath, chest pain, new or worsening symptoms - please call your PCP or go to the ED. Your blood pressure was high at todays visit. Please see your primary provider within 4 weeks for recheck and re-evaluation. 1) Please schedule a follow up appointment with your PCP as soon as possible for better control of your sugars 2) If your symptoms worsen - please go to the ER - Billing Disposition and Condition Condition: STABLE Disposition: Home
[2018-08-29] MEDS ORDERED: Al Hydrox/Mg Hydrox/Simet LIQ* 30 ML UDC PO ONE (13:37)
[2018-08-29] MEDS ORDERED: Lidocaine 2% VISCOUS* 15 ML UDC PO ONE (13:40)
== END 2018-08-29 14:10 | disposition home or self-care (01) ==
LOC: UCEAST 12:05
DX: K21.9 Gastro-esophageal reflux disease without esophagitis (principal); R11.2 Nausea with vomiting, unspecified; E11.8 Type 2 diabetes mellitus with unspecified complications; Z87.891 Personal history of nicotine dependence
CPT/HCPCS: 93005; 99212; A9270-GY; G0463

== ENCOUNTER 2019-07-06 09:07 | Emergency (ER) | payer BC ==
--- NOTE | 2019-07-06 09:42 | UC ---
General HPI - HPI Summary HPI Summary: ONSET OF TINGLING SENSATION TO HIS RIGHT FOREARM AND HAND LAST NIGHT. WOKE UP 4 :30 THIS MORNING WITH PERSISTENT NUMBNESS/TINGLING AND WEAKNESS. STATES HE KEPT DROPPING THINGS THIS MORNING. HAS A HISTORY OF HYPERTENSION AND DIABETES. BLOOD PRESSURE ON ARRIVAL TO THE WAS 188/84. DENIES ANY HEADACHE, NECK PAIN, CHEST PAIN, SHORTNESS OF BREATH. DENIES ANY OTHER FOCAL NEUROLOGIC SYMPTOMS. - History of Current Complaint Chief Complaint: UCGeneralIllness Stated Complaint: NUMBNESS IN ARM AND HAND Time Seen by Provider: 07/06/19 09:16 Hx Obtained From: Patient Onset/Duration: Gradual Onset, Lasting Hours, Still Present Timing: Constant Onset Severity: Moderate Current Severity: Moderate Pain Intensity: 6 Associated Signs & Symptoms: Positive: Weakness. Negative: Confusion, Chest Pain, Decreased Responsiveness, Dizziness, Edema, Headache, Nausea, Vomiting - Allergy/Home Medications Allergies/Adverse Reactions: Allergies Allergy/AdvReac Type Severity Reaction Status Date / Time No Known Allergies Allergy Verified 07/06/19 09:14 PMH/Surg Hx/FS Hx/Imm Hx Endocrine History: Diabetes Cardiovascular History: Hypertension - Surgical History Surgical History: Yes Surgery Procedure, Year, and Place: Right inguinal hernia surgery (November 2010 in [place]) - Family History Known Family History: Positive: Hypertension, Diabetes - Social History Alcohol Use: Occasionally Substance Use Type: None Smoking Status (MU): Former Smoker Have You Smoked in the Last Year: Yes - once in a while cigar Household Exposure Type: Cigars Review of Systems All Other Systems Reviewed And Are Negative: Yes Constitutional: Positive: Negative Skin: Positive: Negative Respiratory: Positive: Negative Cardiovascular: Positive: Negative Gastrointestinal: Positive: Negative Musculoskeletal: Positive: Negative Neurological: Positive: Weakness, Paresthesia, Numbness Physical Exam Triage Information Reviewed: Yes Appearance: Well-Appearing, No Pain Distress, Well-Nourished Vital Signs: Initial Vital Signs Temp 98.5 F 07/06/19 09:11 Pulse 71 07/06/19 09:11 Resp 16 07/06/19 09:11 BP 188/84 07/06/19 09:11 Pulse Ox 100 07/06/19 09:11 Vital Signs Reviewed: Yes Eyes: Positive: Conjunctiva Clear ENT: Positive: Hearing grossly normal Neck: Positive: Supple Respiratory Exam: Normal Cardiovascular Exam: Normal Abdomen Description: Positive: Soft Musculoskeletal: Positive: No Edema, ROM Limited @ - BASELINE LIMITED ROM SHOULDERS Neurological: Positive: Alert, Other: - CN II-XII GROSSLY INTACT BILATERALLY. RAPID ALTERNATING MOVEMENTS SLOW BUT INTACT. NEG PRONATOR DRIFT. NEG ROMBERG. 4/ 5 STRENGTH RIGHT UPPER EXTREMITY. HEEL TO NGUYEN INTACT BILATERALLY. FINGER TO NOSE SLUGGIUSH ON RIGHT BUT INTACT. Psychological: Positive: Age Appropriate Behavior Skin: Negative: Rashes Diagnostics - EKG Cardiac Rate: NL - 70bpm. LVH Cardiac Rhythm: Sinus: Normal Ectopy: None ST Segment: Normal Course/Dx - Course Course Of Treatment: 53-YEAR-OLD MALE PATIENT WITH TINGLING IN RIGHT ARM SINCE LAST NIGHT AND DISTINCT RIGHT UPPER EXTREMITY WEAKNESS FOR AT LEAST 5 HOURS IN THE SETTING OF KNOWN HYPERTENSION AND DIABETES. EKG UNREMARKABLE. BLOOD PRESSURE ON ARRIVAL TO THE 188/84. TO [facility] ER BY AMBULANCE. - Diagnoses Provider Diagnosis: Weakness of right upper extremity - Physician Notifications Discussed Patient Care With: Cornell Angela - TO [facility] ER BY AMBULANCE Time Discussed With Above Provider: 09:38 Instructed by Provider To: Will See In ED - ALSO SPOKE TO DR. WOLF CUEVAS IN THE [facility] ER Discharge - Sign-Out/Discharge Documenting (check all that apply): Patient Departure All imaging exams completed and their final reports reviewed: No Studies - Discharge Plan Condition: Guarded Disposition: TRANS HIGHER LVL OF CARE FAC Referrals: Wolf Granados MD [Primary Care Provider] - - Billing Disposition and Condition Condition: GUARDED Disposition: Trans Higher Lvl of Care Fac
[2019-07-06 09:58] VITALS: BP 193/103
== END 2019-07-06 09:58 | disposition short-term general hospital (02) ==
LOC: UCEAST 09:07
DX: M62.81 Muscle weakness (generalized) (principal); R20.2 Paresthesia of skin; E11.9 Type 2 diabetes mellitus without complications; I10 Essential (primary) hypertension; Z87.891 Personal history of nicotine dependence
CPT/HCPCS: 93005; 99213; G0463

== ENCOUNTER 2024-12-25 15:32 | Observation (INO) ==
[2024-12-25] MEDS: Ondansetron 4 mg VIAL 2 MG/ML 2 ml VIAL IV ONE (16:48)
[2024-12-25 16:57] LABS: ABS Eosinophils 0.1 10^3/uL (0.0-0.5); ABS Lymphocytes 1.5 10^3/uL (1.0-4.8); ABS Monocytes 0.4 10^3/uL (0.0-1.1); ABS Neutrophils 5.3 10^3/uL (1.5-7.6); Eosinophil % 1.9 %; Hematocrit 44.1 % (38-53); Hemoglobin 15.2 g/dL (13.2-16.3); Lymphocyte % 19.9 %; Mean Corpuscular Hemoglobin 30.2 pg (27-33); Mean Corpuscular Hgb Conc 34.5 g/dL (31-36); Mean Corpuscular Volume 87.5 fL (80-97); Mean Platelet Volume 7.6 fL (7.5-11.2); Nucleated Red Blood Cells % 0.1 %/100WBC (0.0-0.8); Platelet Count 257 10^3/uL (150-450); Red Blood Count 5.04 10^6/uL (4.06-5.63); Red Cell Distribution Width 14.4 % (12-17); White Blood Count 7.3 10^3/uL (3.6-10.2)
[2024-12-25 17:34] LABS: Albumin 4.4 g/dL (3.5-5.7); Albumin/Globulin Ratio 1.5 (1-3); C Reactive Protein 2.61 mg/L (<8.01); Calcium 10.1 mg/dL (8.6-10.3); Creatinine, Serum 1.49 mg/dL (0.67-1.17); Globulin 2.9 g/dL (2-4); Potassium 4.7 mmol/L (3.5-5.0); Total Bilirubin 0.8 mg/dL (0.2-1.0); Total Protein 7.3 g/dL (6.4-8.9); eGFR CKD-EPI 53.1 (>60)
[2024-12-25 18:30] LABS: Erythrocyte Sed Rate 8 mm/Hr (0-19)
[2024-12-26] MEDS ORDERED: Dextrose 50% Syringe 50 ml 25 GM/50 ML SYRINGE IV PUSH PRN ×2 (03:39→05:23)
[2024-12-26] MEDS: Acetaminophen IV 1 GM/100ML 1,000 MG/100 ML BAG IV SCH (03:47)
[2024-12-26] MEDS: Lidocaine PATCH 5% PATCH TRANSDERM SCH (03:47)
[2024-12-26] MEDS ORDERED: Morphine 2 MG/ML SYRINGE IV PRN (04:37)
[2024-12-26] MEDS ORDERED: HYDROmorphone 1 MG/1 ML SYRINGE IV SLOW PU PRN (04:37)
[2024-12-26] MEDS ORDERED: fentaNYL 100 mcg/2 ml 50 MCG/ML VIAL IV SLOW PU PRN (05:18)
[2024-12-26] MEDS: Dexamethasone IV 4 MG/ML VIAL 1 ml VIAL IV SLOW PU ONE (05:36)
[2024-12-26] MEDS: DULoxetine DR 60 mg CAP PO SCH (06:38)
[2024-12-26 06:51] LABS: Hemoglobin 14.3 g/dL (13.2-16.3); Mean Corpuscular Hemoglobin 30.7 pg (27-33); Mean Corpuscular Hgb Conc 34.8 g/dL (31-36); Mean Platelet Volume 7.6 fL (7.5-11.2); Platelet Count 210 10^3/uL (150-450); Red Blood Count 4.66 10^6/uL (4.06-5.63); Red Cell Distribution Width 14.1 % (12-17); White Blood Count 6.5 10^3/uL (3.6-10.2)
[2024-12-26 07:00] LABS: Activated Partial Thrombo Time 28.6 seconds (26.0-38.0); INR 1.01 (0.85-1.14)
[2024-12-26 07:23] LABS: Calcium 9.2 mg/dL (8.6-10.3); Creatinine, Serum 1.82 mg/dL (0.67-1.17); Potassium 3.9 mmol/L (3.5-5.0); eGFR CKD-EPI 41.7 (>60)
[2024-12-26] MEDS: Heparin 5000 UNITS/ML 1 mL VIAL SUBCUT SCH (08:58)
[2024-12-26] MEDS: Insulin GLARGINE 100 un/ml 10 ml VIAL SUBCUT SCH (09:12)
[2024-12-26] MEDS: fentaNYL 100 mcg/2 ml 50 MCG/ML VIAL IV SLOW PU PRN (10:10)
[2024-12-26] MEDS ORDERED: Polyethylene Glycol 3350 17 GM PACKET PO PRN (10:24)
[2024-12-26] MEDS ORDERED: Magnesium Hydroxide LIQ 30 ML UDC PO PRN (10:24)
[2024-12-26] MEDS ORDERED: Senna TAB 8.6 mg TAB PO PRN (10:24)
[2024-12-26] MEDS: HYDROmorphone 1 MG/1 ML SYRINGE IV SLOW PU PRN (12:37)
[2024-12-27 06:40] LABS: ABS Lymphocytes 1.1 10^3/uL (1.0-4.8); ABS Monocytes 0.5 10^3/uL (0.0-1.1); ABS Neutrophils 6.6 10^3/uL (1.5-7.6); Hematocrit 39.3 % (38-53); Hemoglobin 13.7 g/dL (13.2-16.3); Lymphocyte % 13.2 %; Mean Corpuscular Hemoglobin 30.6 pg (27-33); Mean Corpuscular Hgb Conc 34.9 g/dL (31-36); Mean Corpuscular Volume 87.6 fL (80-97); Mean Platelet Volume 7.8 fL (7.5-11.2); Platelet Count 233 10^3/uL (150-450); Red Blood Count 4.49 10^6/uL (4.06-5.63); Red Cell Distribution Width 13.9 % (12-17); White Blood Count 8.2 10^3/uL (3.6-10.2)
[2024-12-27 07:18] LABS: Calcium 9.1 mg/dL (8.6-10.3); Creatinine, Serum 1.84 mg/dL (0.67-1.17); Potassium 4.5 mmol/L (3.5-5.0); eGFR CKD-EPI 41.2 (>60)
[2024-12-27] MEDS: HYDROcodone/ACETAMIN 5/325 mg TAB PO PRN ×2 (14:26→16:39)
[2024-12-28] MEDS: Insulin GLARGINE 100 un/ml 10 ml VIAL SUBCUT SCH (09:53)
[2024-12-28 20:20] VITALS: BP 131/61
== END 2024-12-28 20:45 | disposition short-term general hospital (02) ==
LOC: ED 15:32 → EDHOLD 15:32 → SUATTDRO 12-26 03:25 → MED 12-26 08:52
PROVIDERS: ADMIT Internal Medicine; ATTEND Internal Medicine